=== PATIENT | male | born 1985 | race Caucasian/White ===

== ENCOUNTER 2016-08-08 14:17 | Emergency (ER) | payer SELFPAY ==
[2016-08-08 14:32] VITALS: BP 149/107
== END 2016-08-08 14:40 | disposition left against medical advice (07) ==
LOC: ED 14:17
DX: R10.9 Unspecified abdominal pain (principal); R20.0 Anesthesia of skin; Z53.21 Procedure and treatment not carried out due to patient leaving prior to being seen by health care provider

== ENCOUNTER 2016-08-09 13:01 | Inpatient (IN) | payer OTHER ==
[2016-08-09 14:18] LABS: Basophils % (Auto) 0.9 % (0.0-1.8); Eosinophils % (Auto) 0.3 % (0.0-4.3); Hematocrit 45.5 % (35.5-45.6); Hemoglobin 15.1 gm/dl (11.8-15.2); Mean Corpuscular HGB Conc 33 % (32-34); Mean Corpuscular Hemoglobin 31 pg (28-32); Mean Corpuscular Volume 94 fl (84-94); Platelet Count 183 K/mm3 (140-440); Red Blood Count 4.84 M/mm3 (3.65-5.03); White Blood Count 4.2 K/mm3 (4.5-11.0)
[2016-08-09 14:30] LABS: Anion Gap 22 mmol/L; BUN/Creatinine Ratio 8.75; Blood Urea Nitrogen 7 mg/dL (9-20); Calcium 9.3 mg/dL (8.4-10.2); Carbon Dioxide 25 mmol/L (22-30); Chloride 101.6 mmol/L (98-107); Glucose 116 mg/dL (75-100); Potassium 4.2 mmol/L (3.6-5.0); Sodium 144 mmol/L (137-145)
--- NOTE | 2016-08-09 23:06 | Emergency Department Report ---
HPI - General Chief Complaint: Chest Pain Time Seen by Provider: 08/09/16 22:52 - HPI HPI: Room 18 The patient is a 30-year-old male presenting with a chief complaint of right chest pain. The patient states yesterday afternoon at approximately 15:00 while walking he had sudden onset of right-sided chest pain. Patient states she didn't develop pain and numbness in his right upper extremity and pain in his right abdomen. Patient admits to pleurisy. Patient states she came to the ED the left prior to being evaluated when he went home developed shortness of breath or cough. Is probably the patient come back for evaluation Location: Right chest Duration: Constant since 15:00 Quality: Pain Severity: Moderate Modifying factors: Inspiration increases pain Context: [see above] Mode of transportation: [not driving] ED Past Medical Hx - Past Medical History Hx GERD: Yes - Family History Family history: no significant - Social History Smoking Status: Current Every Day Smoker (1/3 pack per day) Substance Use Type: None (denies illicit drug use), Alcohol (frequently) - Medications Home Medications: Home Medications Medication Instructions Recorded Confirmed Last Taken Type No Known Home Medications [No 05/18/15 08/09/16 Unknown History Reported Home Medications] ED Review of Systems ROS: Stated complaint: POSS STROKE/R ARM NUMBNESS Other details as noted in HPI Comment: All other systems reviewed and negative Constitutional: denies: chills, fever Eyes: denies: eye pain, eye discharge, vision change ENT: denies: ear pain, throat pain Respiratory: cough, shortness of breath, other (pleurisy) Cardiovascular: denies: palpitations Endocrine: no symptoms reported Gastrointestinal: abdominal pain Genitourinary: denies: urgency, dysuria Musculoskeletal: arthralgia, myalgia Skin: denies: rash, lesions Neurological: denies: headache, weakness, paresthesias Psychiatric: denies: anxiety, depression Hematological/Lymphatic: denies: easy bleeding, easy bruising Physical Exam - Physical Exam Vital Signs: Vital Signs 08/09/16 08/09/16 08/09/16 13:28 21:50 21:54 Temperature 98.5 F 98.5 F Pulse Rate 103 H 101 H Respiratory 20 20 Rate Blood Pressure 145/105 Blood Pressure 156/100 [Left] O2 Sat by Pulse 96 97 97 Oximetry Physical Exam: GENERAL: The patient is well-developed well-nourished male lying on stretcher exhibiting mild tremulousness appeared to be in moderate discomfort. [] HEENT: Normocephalic. Atraumatic. Extraocular motions are intact. Patient has moist mucous membranes. NECK: Supple. Trachea midline CHEST/LUNGS: Slightly decreased breath sounds on the right when compared to the left. There is no respiratory distress noted. HEART/CARDIOVASCULAR: Regular. There is tachycardia. There is no gallop rub or murmur. ABDOMEN: Abdomen is tender to palpation in the right upper quadrant epigastric and left upper quadrant. Patient has normal bowel sounds. There is no abdominal distention. SKIN: There is no rash. There is no edema. There is no diaphoresis. NEURO: The patient is awake, alert, and oriented. The patient is cooperative. The patient has normal speech MUSCULOSKELETAL: There is no evidence of acute injury. ED Course Vital Signs 08/09/16 08/09/16 08/09/16 13:28 21:50 21:54 Temperature 98.5 F 98.5 F Pulse Rate 103 H 101 H Respiratory 20 20 Rate Blood Pressure 145/105 Blood Pressure 156/100 [Left] O2 Sat by Pulse 96 97 97 Oximetry - Chest Tube Chest Tube Location: anterior axillary line (right) Chest Tube Procedure: betadine prep, sterile drapes applied, sterile dressing applied Anesthesia: 1% Lidocaine w/ Epi Volume Anesthetic (ccs): 6 Bhagat of Air [place]: Yes Number of Attempts: 1 Tube Drainage: see nurses notes Tube Sutured to Skin: Yes Post Procedure CXR?: Yes ED Medical Decision Making - Lab Data Result diagrams: 08/09/16 13:50 08/09/16 13:50 Laboratory Tests 08/09/16 08/09/16 08/09/16 13:50 13:50 16:12 WBC 4.2 L RBC 4.84 Hgb 15.1 Hct 45.5 MCV 94 MCH 31 MCHC 33 RDW 14.0 Plt Count 183 Lymph % (Auto) 11.4 L Geary % (Auto) 12.2 H Eos % (Auto) 0.3 Baso % (Auto) 0.9 Lymph # 0.5 L Geary # 0.5 Eos # 0.0 Baso # 0.0 Seg Neutrophils % 75.2 H Seg Neutrophils # 3.2 Sodium 144 Potassium 4.2 Chloride 101.6 Carbon Dioxide 25 Anion Gap 22 BUN 7 L Creatinine 0.8 Estimated GFR > 60 BUN/Creatinine Ratio 8.75 Glucose 116 H Calcium 9.3 Troponin T < 0.010 < 0.010 08/09/16 19:34 WBC RBC Hgb Hct MCV MCH MCHC RDW Plt Count Lymph % (Auto) Geary % (Auto) Eos % (Auto) Baso % (Auto) Lymph # Geary # Eos # Baso # Seg Neutrophils % Seg Neutrophils # Sodium Potassium Chloride Carbon Dioxide Anion Gap BUN Creatinine Estimated GFR BUN/Creatinine Ratio Glucose Calcium Troponin T < 0.010 - EKG Data -: EKG Interpreted by Me EKG shows normal: sinus rhythm Rate: tachycardia (106 bpm) - EKG Data When compared to previous EKG there are: previous EKG unavailable Interpretation: other (no ischemic changes seen) - Radiology Data Radiology results: image reviewed (chest x-ray #1, chest x-ray #2) interpreted by me: Chest x-ray-right pneumothorax Chest x-ray #2-chest tube in right lung periphery. Resolved right-sided pneumothorax - Differential Diagnosis pneumothorax, PE, pleurisy, pneumonia Critical care attestation.: If time is entered above; I have spent that time in minutes in the direct care of this critically ill patient, excluding procedure time. ED Disposition Clinical Impression: Spontaneous pneumothorax, Right-sided chest pain Disposition: OP ADMITTED IP TO THIS HOSP Is pt being admited?: Yes Does the pt Need Aspirin: Yes Condition: Serious Time of Disposition: 00:17 (hospitalist notified)
[2016-08-09] MEDS ORDERED: XYLOCAINE 1%/ EPI 1:100,000 INFILTRATI ONE (23:30)
[2016-08-09] MEDS ORDERED: ZOFRAN IV PRN (23:37)
[2016-08-09] MEDS ORDERED: DULCOLAX PR PRN (23:37)
[2016-08-09] MEDS ORDERED: DUONEB 0.5 MG-3 MG/3 ML SOLN IH PRN (23:37)
[2016-08-09] MEDS ORDERED: MILK OF MAGNESIA PO PRN (23:37)
[2016-08-09] MEDS ORDERED: PERCOCET 5/325 PO PRN (23:37)
--- NOTE | 2016-08-09 23:37 | History and Physical Report ---
History of Present Illness Chief complaint: My chest hurts, and I cant breathe History of present illness: 30 YO Male with Nicotine Dependence, ETOH abuse, GERD Presents to ED for evaluation. Pt states that he has experienced pain in his right chest for the past 1 day. Pt states that he experienced acute onset right sided pain in his chest while walking. Pt states that pain is 8/10, worse with deep breathing, localized to the right chest. Pt presented to ED and left AMA prior to completion of workup. Pt denies fever, chills, Palpitations, NVD, productive cough, hemoptysis, seizures, trauma, unintentional weight loss, night sweats, family history of spontaneous pneumothorax, or connective tissue disease. . Past History Past Medical History: GERD Past Surgical History: No surgical history, Other (reviewed) Social history: single Family history: no significant family history, other (reviewed) Medications and Allergies Allergies Allergy/AdvReac Type Severity Reaction Status Date / Time No Known Allergies Allergy Verified 08/09/16 13:28 Home Medications Medication Instructions Recorded Confirmed Last Taken Type No Known Home Medications [No 05/18/15 08/09/16 Unknown History Reported Home Medications] Active Meds: Active Medications Lidocaine/Epinephrine (Xylocaine 1%/ Epi 1:100,000) 20 ml INFILTRATI ONCE NR Review of Systems All systems: negative Cardiovascular: chest pain Exam - Constitutional Vitals: Temp Pulse Resp BP Pulse Ox 98.5 F 101 H 20 156/100 97 08/09/16 21:54 08/09/16 21:54 08/09/16 21:54 08/09/16 21:54 08/09/16 21:54 General appearance: Present: mild distress - EENT Eyes: Present: PERRL ENT: hearing intact, clear oral mucosa - Neck Neck: Present: supple, normal ROM - Respiratory Respiratory effort: normal Respiratory: right: diminished - Cardiovascular Heart Sounds: Present: S1 & S2. Absent: rub, click - Extremities Extremities: pulses symmetrical, No edema Peripheral Pulses: within normal limits - Abdominal General gastrointestinal: Present: soft, non-tender, non-distended, normal bowel sounds Male genitourinary: Present: normal - Integumentary Integumentary: Present: clear, warm, dry - Musculoskeletal Musculoskeletal: gait normal, strength equal bilaterally - Psychiatric Psychiatric: appropriate mood/affect, intact judgment & insight - Neurologic Neurologic: CNII-XII intact, moves all extremities Results - Labs CBC & Chem 7: 08/09/16 13:50 08/09/16 13:50 Labs: Abnormal lab results 08/09/16 08/09/16 Range/Units 13:50 13:50 WBC 4.2 L (4.5-11.0) K/mm3 Lymph % (Auto) 11.4 L (13.4-35.0) % Weld % (Auto) 12.2 H (0.0-7.3) % Lymph # 0.5 L (1.2-5.4) K/mm3 Seg Neutrophils % 75.2 H (40.0-70.0) % BUN 7 L (9-20) mg/dL Glucose 116 H (75-100) mg/dL Assessment and Plan - Patient Problems (1) Acute respiratory failure Current Visit: Yes Status: Acute Qualifiers: Respiratory failure complication: R Plan to address problem: supplemental oxygen, nebs, pulmonary toilet, Chest tube, supportive care, pain control (2) Spontaneous pneumothorax Current Visit: Yes Status: Acute Plan to address problem: chest tube placed in ED, surgery consulted, Chest tube to LWS (3) GERD (gastroesophageal reflux disease) Current Visit: Yes Status: Acute Qualifiers: Esophagitis presence: E Plan to address problem: ppi therapy (4) ETOH abuse Current Visit: Yes Status: Acute Plan to address problem: Thiamine, folic acid, multivitamin, [place] protocol. (5) Nicotine dependence Current Visit: Yes Status: Acute Qualifiers: Nicotine product type: N Substance use status: S Plan to address problem: Pt counseled, (6) DVT prophylaxis Current Visit: Yes Status: Acute
[2016-08-09] MEDS ORDERED: XYLOCAINE 1%/ EPI 1:100,000 INFILTRATI NR (23:45)
[2016-08-09] MEDS ORDERED: AMIDATE IV ONE (23:45)
--- NOTE | 2016-08-10 00:19 | Admit Criteria Form ---
Admission Criteria Documentation: PNEUMOTHORAX Clinical Indications for Admission to Inpatient Care (Place 'X' for any and all applicable criteria): Admission for ANY ONE of the following (1),(2): [ ]I. Pneumothorax caused by associated lung disease (eg, COPD, cystic fibrosis, lung cancer, AIDS)(6): [ ]II. Recurrent episode of pneumothorax9 [ ]III. Traumatic pneumothorax (10)(11)(12) [ ]IV. Tension pneumothorax [ ]V. Hypotension [ ]. Respiratory distress [ ]VII. Pneumothorax exacerbating significant comorbidity (eg, heart failure) [ X]VIII. Inpatient admission required rather than observation care (see Pneumothorax: Observation Care guideline as appropriate) because of ANY ONE of the following (13)(14) [ ]a) Symptomatic pneumothorax that is progressive or persistent [ ]b) Infection identified (eg, pneumonia) that requires inpatient management [ ]c) Severe pain requiring acute inpatient management [ ]d) Supplemental O2 or respiratory therapy for over 24 hrs that are performable only in acute inpatient setting [ X]e) Chest tube placement with active evacuation (eg, suction, drainage) (15) [ ]f) Epidural analgesia [ ]g) Other condition, treatment or monitoring requiring inpatient admission Extended stay beyond goal length of stay may be needed for (24) [ ]a) Secondary pneumothorax [ ]b) Pneumothorax assoc with trauma(eg, multiple fractured ribs) [ ]c) Recurrent episode of primary spontaneous pneumothorax. [ ]d) Older patients [ ]e) Tension pneumothorax [ ]f) Pulmonary edema [ ]g) Persistent air leak The original [employer] content created by [employer] has been revised. The portions of the content which have been revised are identified through the use of italic text or in bold, and [facility] has neither reviewed nor approved the modified material. All other unmodified content is copyright [employer]. Please see references footnoted in the original [employer] edition 2016 Admission Criteria Met: Yes
[2016-08-10] MEDS ORDERED: AMIDATE IV ONE (00:26)
[2016-08-10] MEDS ORDERED: DILAUDID ONE (00:29)
[2016-08-10] MEDS ORDERED: DILAUDID IV ONE (00:29)
[2016-08-10] MEDS ORDERED: ZOFRAN IV ONE (00:29)
[2016-08-10] MEDS ORDERED: ZOFRAN ONE (00:29)
[2016-08-10] MEDS ORDERED: PROVENTIL IH PRN (00:40)
[2016-08-10] MEDS ORDERED: THERAGRAN Tab PO ONE (01:00)
[2016-08-10] MEDS ORDERED: VITAMIN B-1 PO ONE (02:00)
[2016-08-10] MEDS: TYLENOL PO PRN ×2 (02:43→13:43)
[2016-08-10] MEDS: MORPHINE IV PRN ×2 (05:41→12:28)
[2016-08-10] MEDS: ATIVAN IV PRN (08:44)
--- NOTE | 2016-08-10 09:43 | Progress Note ---
Assessment and Plan Assessment and plan: --acute hypoxic respiratory failure Secondary to spontaneous pneumothorax, oxygen titrated to O2 sats more than 90% Status post Chest tube placement --Spontaneous pneumothorax on the right side Status post chest tube placement Surgery consultation, pulmonary consultation Continue supportive care --History of EtOH abuse/alcohol withdrawal Continue [facility] protocol, closely monitor for alcohol withdrawal symptoms Thiamin folic acid --Chronic alcohol use On screen done patient strongly advised to quit alcohol use Verbalized understanding --Ongoing tobacco use Smoking cessation counseling done patient strongly advised to quit tobacco use Nicotine patch as needed --Gastroesophageal reflux disease Continue Protonix --DVT prophylaxis with Lovenox Closely monitor the patient and adjust the management as needed Patient is admitted to medical floor We will transfer the patient to telemetry/ICU for close observation I discussed the case with pulmonary critical Dr. Nguyen and requested a consult Plan Of care discussed with the patient and his nurse History Interval history: Patient seen and evaluated medical records reviewed Patient was admitted last night with spontaneous pneumothorax status post chest tube placement Patient is slightly anxious, denies chest pain or shortness of breath Awake oriented 3 not in acute distress Vital signs reviewed Hospitalist Physical - Constitutional Vitals: Temp Pulse Resp BP Pulse Ox 98.4 F 82 18 152/111 97 08/10/16 07:40 08/10/16 07:40 08/10/16 07:40 08/10/16 07:40 08/10/16 07:40 General appearance: Present: no acute distress, well-nourished, other (anxious) - EENT Eyes: Present: PERRL, EOM intact - Neck Neck: Present: supple, normal ROM - Respiratory Respiratory effort: normal Respiratory: right: diminished, bilateral: rhonchi (scanty), negative: rales, wheezing - Cardiovascular Rhythm: regular Heart Sounds: Present: S1 & S2 - Extremities Extremities: no ischemia, pulses intact, pulses symmetrical Peripheral Pulses: within normal limits - Abdominal General gastrointestinal: soft, non-tender, non-distended, normal bowel sounds - Integumentary Integumentary: Present: clear, warm - Psychiatric Psychiatric: appropriate mood/affect, cooperative - Neurologic Neurologic: CNII-XII intact, moves all extremities Results - Labs CBC & Chem 7: 08/09/16 13:50 08/09/16 13:50 Labs: Laboratory Last Values WBC 4.2 K/mm3 (4.5-11.0) L 05/20/17 13:50 RBC 4.84 M/mm3 (3.65-5.03) 08/09/16 13:50 Hgb 15.1 gm/dl (11.8-15.2) 08/09/16 13:50 Hct 45.5 % (35.5-45.6) 08/09/16 13:50 MCV 94 fl (84-94) 08/09/16 13:50 MCH 31 pg (28-32) 08/09/16 13:50 MCHC 33 % (32-34) 08/09/16 13:50 RDW 14.0 % (13.2-15.2) 08/09/16 13:50 Plt Count 183 K/mm3 (140-440) 08/09/16 13:50 Lymph % (Auto) 11.4 % (13.4-35.0) L 08/09/16 13:50 Dixon % (Auto) 12.2 % (0.0-7.3) H 08/09/16 13:50 Eos % (Auto) 0.3 % (0.0-4.3) 08/09/16 13:50 Baso % (Auto) 0.9 % (0.0-1.8) 08/09/16 13:50 Lymph # 0.5 K/mm3 (1.2-5.4) L 08/09/16 13:50 Dixon # 0.5 K/mm3 (0.0-0.8) 08/09/16 13:50 Eos # 0.0 K/mm3 (0.0-0.4) 08/09/16 13:50 Baso # 0.0 K/mm3 (0.0-0.1) 08/09/16 13:50 Seg Neutrophils % 75.2 % (40.0-70.0) H 08/09/16 13:50 Seg Neutrophils # 3.2 K/mm3 (1.8-7.7) 08/09/16 13:50 Sodium 144 mmol/L (137-145) 08/09/16 13:50 Potassium 4.2 mmol/L (3.6-5.0) 08/09/16 13:50 Chloride 101.6 mmol/L (98-107) 08/09/16 13:50 Carbon Dioxide 25 mmol/L (22-30) 08/09/16 13:50 Anion Gap 22 mmol/L 08/09/16 13:50 BUN 7 mg/dL (9-20) L 08/09/16 13:50 Creatinine 0.8 mg/dL (0.8-1.5) 08/09/16 13:50 Estimated GFR > 60 ml/min 08/09/16 13:50 BUN/Creatinine Ratio 8.75 % 08/09/16 13:50 Glucose 116 mg/dL (75-100) H 08/09/16 13:50 Calcium 9.3 mg/dL (8.4-10.2) 08/09/16 13:50 Troponin T < 0.010 ng/mL (0.00-0.029) 08/09/16 19:34
--- NOTE | 2016-08-10 11:01 | XRay Report ---
AP CHEST :08/10/16 00:23 CLINICAL: Chest tube insertion. COMPARISON:08/09/16 and 23:03 FINDINGS: Since the prior exam, a small caliber chest tube has been inserted at the right second intercostal space. The right lung is normally expanded and clear. Mild subcutaneous emphysema of the right chest wall. The left lung is normally expanded and clear. Normal heart and pulmonary vessels. IMPRESSION: No pneumothorax after placement of right chest tube.
--- NOTE | 2016-08-10 11:11 | XRay Report ---
AP CHEST :08/09/16 23:03 CLINICAL: Right chest pain. Shortness of breath. COMPARISON:None. FINDINGS: A large right pneumothorax with mild shift of the heart to the left.No rib fracture. The bones and soft tissues are normal. Normal heart and pulmonary vasculature. The left lung is clear. IMPRESSION: A large right pneumothorax with tension. Note: This may be a duplicate dictation. I have possibly redictated the study but I cannot confirm at this time that there is an existing dictation from the teleradiologist. By the time of this dictation, a right chest tube has been inserted and the right lung has reexpanded on the followup exam.
[2016-08-10] MEDS: FOLVITE PO SCH ×2 (13:01→13:02)
--- NOTE | 2016-08-10 14:14 | Consultation ---
History of Present Illness Consult date: 08/10/16 Requesting physician: DENEEN ACUNA Reason for consult: pneumothorax History of present illness: PULMONARY/CCM CONSULT NOTE (Full dictation # [id number]) Please see dictated notes for full details Past History Past Medical History: GERD Past Surgical History: No surgical history, Other (reviewed) Social history: single Family history: no significant family history, other (reviewed) Medications and Allergies Allergies Allergy/AdvReac Type Severity Reaction Status Date / Time No Known Allergies Allergy Verified 08/09/16 13:28 Home Medications Medication Instructions Recorded Confirmed Last Taken Type No Known Home Medications [No 05/18/15 08/09/16 Unknown History Reported Home Medications] Active Meds: Active Medications Acetaminophen (Tylenol) 650 mg PO Q4H PRN PRN Reason: Pain MILD(1-3)/Fever >100.5/SPARKS Last Admin: 08/10/16 13:43 Dose: 650 mg Albuterol (Proventil) 2.5 mg IH Q6HRT PRN PRN Reason: Shortness Of Breath Bisacodyl (Dulcolax) 10 mg [place] QDAY PRN PRN Reason: Constipation unrelieved by MOM Folic Acid (Folvite) 1 mg PO QDAY JOSSELINE Last Admin: 08/10/16 13:02 Dose: 1 mg Lidocaine/Epinephrine (Xylocaine 1%/ Epi 1:100,000) 20 ml INFILTRATI ONCE NR Stop: 08/10/16 23:44 Last Admin: 08/10/16 00:24 Dose: 20 ml Lorazepam (Ativan) 2 mg IV Q1HR PRN PRN Reason: CIWA-Ar 8-15 Last Admin: 08/10/16 08:44 Dose: 2 mg Magnesium Hydroxide (Milk Of Magnesia) 30 ml PO Q4H PRN PRN Reason: Constipation Morphine Sulfate (Morphine) 1 mg IV Q8H PRN PRN Reason: Pain , Severe (7-10) Last Admin: 08/10/16 12:28 Dose: 1 mg Ondansetron HCl (Zofran) 4 mg IV Q8H PRN PRN Reason: N/V unrelieved by Reglan Oxycodone/Acetaminophen (Percocet 5/325) 1 tab PO Q6H PRN PRN Reason: Pain, Moderate (4-6) Physical Examination Vital signs: Vital Signs Temp Pulse BP Pulse Ox 98.5 F 103 H 145/105 96 08/09/16 13:28 08/09/16 13:28 08/09/16 13:28 08/09/16 13:28 Results - Laboratory Findings CBC and BMP: 08/09/16 13:50 08/09/16 13:50
--- NOTE | 2016-08-10 15:33 | Event Note ---
Date: 08/10/16 30 year old male with first spontaneous Ptx, s/p CT in ER, CXR demonstrates lung reexpanded, continue CT suction x 48 hours then trial of water seal.
[2016-08-10] MEDS ORDERED: MORPHINE IV PRN (18:05)
--- NOTE | 2016-08-10 18:31 | XRay Report ---
FINAL REPORT EXAM: XR CHEST 1V AP HISTORY: chest tube dislodgement TECHNIQUE: Frontal chest radiograph. PRIORS: None. FINDINGS: There is a small amount of right chest wall subcutaneous emphysema. A catheter overlies the right chest wall which may represent the dislodged chest tube. The cardiomediastinal silhouette is normal. No focal consolidation. No pleural effusion. No pneumothorax. No acute osseous abnormality. IMPRESSION: Possible dislodged chest tube projecting over the right lateral thorax with a small amount of right chest wall subcutaneous emphysema. No pneumothorax.
[2016-08-10] MEDS ORDERED: PERCOCET 5/325 PO PRN (21:00)
[2016-08-10] MEDS: DILAUDID IV PRN (22:46)
[2016-08-11 00:41] LABS: Bilirubin,Urine SM (Negative); Blood,Urine NEG (Negative); Ketones,Urine TR mg/dL (Negative); Leukocyte Esterase,Urine NEG (Negative); Mucus,Urine FEW /HPF; Nitrite,Urine NEG (Negative)
[2016-08-11] MEDS: DILAUDID IV PRN (04:41)
[2016-08-11] MEDS: ATIVAN IV PRN ×2 (04:41→06:30)
[2016-08-11] MEDS: TYLENOL PO PRN (06:29)
--- NOTE | 2016-08-11 07:11 | Event Note ---
Date: 08/11/16 first episode spontaneous right PTX, yesterdays cxr demonstrates ct pulled out of chest?, minimal sub q emphysema, bs positive bilaterally, no crepitance on chest wall, CT d/karlos, check CXR, stop drugs-it only confuses things, if CXR OK can be discharged from Thoracic standpoint, increased HR noted, final decision to discharge per Hospitalist.
--- NOTE | 2016-08-11 07:20 | Consultation ---
History of Present Illness - Reason for Consult Consult date: 08/11/16 right pneumothorax - History of Present Illness 30 year old male with first episode of right spontaneous ptx, s/p right ct ( TransmitDemdex CT) placed in ER with reexpansion of right lung. Repeat CXR yesterday afternoon demonstrates question of CT being pulled back out of chest, no residual ptx, no air leak in CT, no obvious sub q emphysema on chest wall. Past History Past Medical History: GERD Past Surgical History: No surgical history, Other (reviewed) Social history: single Family history: no significant family history, other (reviewed) Medications and Allergies Allergies Allergy/AdvReac Type Severity Reaction Status Date / Time No Known Allergies Allergy Verified 08/09/16 13:28 Home Medications Medication Instructions Recorded Confirmed Last Taken Type No Known Home Medications [No 05/18/15 08/09/16 Unknown History Reported Home Medications] Active Meds: Active Medications Acetaminophen (Tylenol) 650 mg PO Q4H PRN PRN Reason: Pain MILD(1-3)/Fever >100.5/SPARKS Last Admin: 08/11/16 06:29 Dose: 650 mg Albuterol (Proventil) 2.5 mg IH Q6HRT PRN PRN Reason: Shortness Of Breath Bisacodyl (Dulcolax) 10 mg [place] QDAY PRN PRN Reason: Constipation unrelieved by [facility] Folic Acid (Folvite) 1 mg PO QDAY [facility] Last Admin: 08/10/16 13:02 Dose: 1 mg Magnesium Hydroxide (Milk Of Magnesia) 30 ml PO Q4H PRN PRN Reason: Constipation Nicotine (Habitrol) 14 mg TD QDAY [facility] Ondansetron HCl (Zofran) 4 mg IV Q8H PRN PRN Reason: N/V unrelieved by Reglan Last Admin: 08/11/16 06:30 Dose: 4 mg Oxycodone/Acetaminophen (Percocet 5/325) 1 tab PO Q6H PRN PRN Reason: Pain, Moderate (4-6) Last Admin: 08/10/16 21:23 Dose: 1 tab Review of Systems Constitutional: other (not short of breath, no chest pain) Exam - Constitutional Vitals: Temp Pulse Resp BP Pulse Ox 98.4 F 88 20 130/93 98 08/11/16 05:44 08/11/16 05:44 08/11/16 05:44 08/11/16 05:44 08/11/16 05:44 General appearance: Present: no acute distress - EENT Eyes: Present: PERRL - Neck Neck: Present: supple, normal ROM - Respiratory Respiratory effort: normal Details: Chest tube dressing intact, no air leak, minimal drainage. - Cardiovascular Heart Sounds: Present: S1 & S2. Absent: rub, click - Extremities Extremities: pulses symmetrical, No edema Peripheral Pulses: within normal limits - Abdominal General gastrointestinal: Present: soft, non-tender, non-distended, normal bowel sounds Male genitourinary: Present: normal - Musculoskeletal Musculoskeletal: gait normal, strength equal bilaterally - Psychiatric Psychiatric: appropriate mood/affect, intact judgment & insight, other (a little sedated from meds) - Neurologic Neurologic: CNII-XII intact, moves all extremities Results - Labs CBC & Chem 7: 08/09/16 13:50 08/09/16 13:50 Assessment and Plan First episode of spontaneous right PTX Conservative management, CT pulled back and out of chest, CT d/karlos, if CXR OK patient can go home from purely Thoracic standpoint. F/U in my office in one week, go to ER for any further CPain or shortness of breath.
--- NOTE | 2016-08-11 08:33 | XRay Report ---
Single view chest: Compared to 08/10/16. History: Chest tube removal. Findings: Normal cardiomediastinal silhouette. Trachea is midline. No consolidation, pneumothorax or pleural effusion. Impression: No acute cardiopulmonary findings.
--- NOTE | 2016-08-11 08:44 | Discharge Summary ---
Providers - Providers Date of Admission: 08/09/16 23:37 Date of discharge: 08/11/16 Attending physician: DENEEN ACUNA 08/10/16 08:58 Consult to Physician [CONS] Routine Consulting Provider: ZAC FLETCHER Reason For Exam: spontaneous pneumotx/s/p CTube placement Place consult to:: dr. fletcher Notified:: answering service Phone number called:: Was contact made?: Yes If yes, spoke with:: dr. fletcher Time called:: 09:22 08/10/16 14:12 Consult to Physician [CONS] Routine Consulting Provider: GAUTAM NGUYEN Reason For Exam: spontaneous pneumothorax,s/p C Tube Place consult to:: Dr. Nguyen Notified:: Tatiana HARRINGTONclinical care manager physician: DEAF/[employer]IST Hospitalization Condition: Serious Disposition: DISCHARGED TO HOME OR SELFCARE Time spent for discharge: 31 min Core Measure Documentation - Palliative Care Palliative Care/ Comfort Measures: Not Applicable - Core Measures Any of the following diagnoses?: none Exam - Constitutional Vitals: Temp Pulse Resp BP Pulse Ox 98.4 F 88 22 130/93 98 08/11/16 05:44 08/11/16 05:44 08/11/16 07:29 08/11/16 05:44 08/11/16 05:44 General appearance: Present: no acute distress, well-nourished - EENT Eyes: Present: PERRL, EOM intact - Neck Neck: Present: supple, normal ROM - Respiratory Respiratory: negative: rales, rhonchi, wheezing - Cardiovascular Rhythm: regular Heart Sounds: Present: S1 & S2 - Extremities Extremities: no ischemia, pulses intact, pulses symmetrical Peripheral Pulses: within normal limits - Abdominal General gastrointestinal: Present: soft, non-tender, non-distended, normal bowel sounds - Integumentary Integumentary: Present: clear, warm - Musculoskeletal Musculoskeletal: strength equal bilaterally, generalized weakness - Psychiatric Psychiatric: appropriate mood/affect, cooperative - Neurologic Neurologic: CNII-XII intact, moves all extremities Plan Activity: no restrictions Diet: regular Special Instructions: smoking cessation Follow up with: PRIMARY CAREMD [Primary Care Provider] - 3-5 Days ZAC FLETCHER MD [Staff Physician] - 7 Days Prescriptions: Nicotine [Habitrol] 14 mg TD QDAY #30 patch
--- NOTE | 2016-08-11 08:59 | Event Note ---
Date: 08/11/16 CXR is OK post CT removal, OK for discharge from Thoracic standpoint.
[2016-08-11 09:04] VITALS: BP 136/95
[2016-08-11] MEDS ORDERED: LEVAQUIN 750MG/150ML 750 MG/150 ML BAG IV SCH (10:00)
[2016-08-11] MEDS ORDERED: HABITROL TD SCH (10:00)
[2016-08-11] MEDS: FOLVITE PO SCH (10:30)
--- NOTE | 2016-08-11 11:15 | Consultation ---
CONSULTING PHYSICIAN: Kitty Dillard M.D. REASON FOR CONSULTATION: Pneumothorax spontaneous. CHIEF COMPLAINT AND HISTORY OF PRESENT ILLNESS: The patient is a 30-year-old male with past medical history significant only for gastroesophageal reflux disease, but also the mention alcohol abuse and nicotine dependence, came to the Emergency Room secondary to pain in the right chest have been going on for about a day, increased with dyspnea on exertion. He denied any trauma to the chest wall. He said if anything he has been doing a lot of coughing, but denies any productive cough. He denied any fevers, chills, night sweats, weight loss or any constitutional type symptoms. When I stopped by to see him, he was resting in bed. They have put in a chest tube in the Emergency Room was here improved breath sounds in the right lung. That really is as much of the history of this presentation as I have. PAST MEDICAL HISTORY: Gastroesophageal reflux disease. Tobacco use disorder. PAST SURGICAL HISTORY: No surgical history. MEDICATIONS: He was on at the time I stopped by to see him according to the medication administration record included the following: Tylenol 650 mg p.o. q.4h. p.r.n. mild pain, albuterol p.r.n., p.r.n. Dulcolax, folic acid 1 mg p.o. daily, Levaquin 750 mg IV daily, Ativan per [facility] protocol, milk of magnesia p.r.n., morphine 1 mg IV q.6h. p.r.n. chest pain, nicotine 14 mg daily, Zofran 4 mg IV q.8h. p.r.n. progresses from moderate pain. ALLERGIES: No known drug allergies. DIET: Well-built gentleman. Denies acute weight loss or gain proceeding few weeks to months. FAMILY AND SOCIAL HISTORY: Lives in the community. He has a less than 10 pack year tobacco smoking history. Reportedly has a history of alcohol abuse. Unable to quantify it. Family was in the room at the time of my visit. Denied illicit drug use or abuse. REVIEW OF SYSTEMS: No loss of consciousness. No new onset seizures. No new onset focal weakness. No gross hematochezia or melena. No gross hematuria or dysuria. He had a pleuritic chest pain, no hematuria, no hematemesis, and no new onset seizures. PHYSICAL EXAMINATION: VITAL SIGNS: At presentation in the Emergency Room revealed vital signs showed that he was afebrile, temperature 98.5 degrees Fahrenheit with a pulse of 103, respiratory rate of 20, blood pressure 145/105, oxygen sats were 96%, inspired oxygen concentration was not recorded. HEAD, EYES, EARS, NOSE AND THROAT: Pupils are equal, round, about 4 mm, reactive to light. Extraocular muscle movements are intact. Grossly, no palpable lymph nodes in the supraclavicular or submandibular lymph node chains. LUNGS: Auscultation of both lung anderson reveal good bilateral breath sounds, no wheezing. HEART: Sounds 1 and 2 are heard, regular rate and rhythm at the time of my evaluation. ABDOMEN: Soft, bowel sounds are positive, nontender. EXTREMITIES: Without overt digital clubbing, cyanosis, or pedal edema. NEUROLOGIC: He had a chest tube on the right chest wall with a little bit of bloody effluent in it. I had him cough, no obvious leak in the chest tube tray. Radiographic studies have been reviewed. Chest x-ray review shows just a little bit of chest tube actually in the pleural space and this was yesterday. It may well have been dislodged at this time, but as mentioned, I do hear good breath sounds. ASSESSMENT AND PLAN: We have an elderly young gentleman in with spontaneous pneumothorax. I hear members coughing around the time of the issue of initial chest pain and shortness of breath and may have been a result has a cough, but then may also be much more than that clinically appears to have reexpanded. We will keep the chest tube in place, ____ suction; however, I will be getting a repeat chest x-ray to make sure that this tube is not out of the pleural space. If it is out of the pleural space what happened next is going to depend on if there is a recurrent pneumothorax. If there is no recurrent pneumothorax we are probably just going to observe him and see how that goes. Cardiothoracic surgeon has been consulted and I will also defer to them in terms of managing the tube. Otherwise, we will follow along see as necessary. Thank you very much for the consult. JOB# [id number] MARIO/MICHELLE
== END 2016-08-11 12:51 | disposition home or self-care (01) | DRG 199 ==
LOC: ED 13:01 → 3A 23:37 → 4A 08-10 17:25
PROVIDERS: ADMIT Internal Medicine; ATTEND Internal Medicine
PROC: 0W9930Z Drainage of Right Pleural Cavity with Drainage Device, Percutaneous Approach (ICD-10-PCS; principal; 2016-08-10)
DX: J93.83 Other pneumothorax (principal); J96.01 Acute respiratory failure with hypoxia; F10.239 Alcohol dependence with withdrawal, unspecified; F17.200 Nicotine dependence, unspecified, uncomplicated; K21.9 Gastro-esophageal reflux disease without esophagitis; Z71.6 Tobacco abuse counseling; Z71.41 Alcohol abuse counseling and surveillance of alcoholic
CPT/HCPCS: 36415; 71010; 80048; 81001; 84484; 85025; 87040; 87086; 93005; 93010; 99406; J1170; J2060; J2270; J2405